=== PATIENT | female | born 1990 | race Two or more races ===

== ENCOUNTER 2021-07-03 15:23 | Inpatient (IN) ==
[2021-07-03] MEDS ORDERED: ACETAMINOPHEN 325 MG TAB PO PRN (16:48)
[2021-07-03] MEDS ORDERED: ONDANSETRON INJ 2 MG/ML 2 ML VIAL IV PRN ×2 (16:48→20:29)
[2021-07-03] MEDS ORDERED: OXYTOCIN 30 UNITS/500 ML BAG IV PRN (18:59)
[2021-07-03] MEDS: LACTATED RINGER'S 1,000 ML IV PRN ×2 (19:05→20:22)
--- NOTE | 2021-07-03 19:07 | History & Physical Report ---
Date of Service July 03, 2021 Assessment & Plan (1) Encounter for supervision of normal in multigravida: (2) Normal labor: Plan: Gloria is a 31-year-old currently at 38 weeks 5 days gestational age presents in labor. Patient progressed from 2 cm dilated to 4.5 cm dilated over 2-1/2 hours. Negative for rupture on exam 1. Fetus: Cat 1 2. Labor: Progressing. Will AROM when able 3. GBS negative 4. Vitals: Recent elevated BP. Patient asymptomatic. Will continue to monitor History of Present Illness Primary Care Provider: Xiang Lam 31-year-old currently at 38 weeks 5 days gestational age presents in labor. Patient reports contractions increasing intensity of frequency throughout the day. Patient reporting contractions with 10/10 pain at present. is been uncomplicated today. OB Labs: Blood Type O Positive 12/19/20 Antibody Screen NEGATIVE 12/19/20 Hemoglobin 11.5 g/dL (12.0-16.0) L 04/23/21 Hematocrit 35.8 % (37-47) L 04/23/21 Mean Corpuscular Volume 92.2 fL (80-100) 02/10/21 Platelet Count 181 K/uL (130-400) 02/10/21 Rubella IgG Antibody Immune (Immune) 12/19/20 Rapid Plasma Reagin Nonreactive (Nonreactive) 12/19/20 Hepatitis B Surface Antigen Neg (Neg) 12/19/20 HIV (1&2) Ab and P24 Ag, 4th Gener Neg (Neg) 12/19/20 Glucose 1 Hour 50 gm Load 95 mg/dl (70-130) 04/23/21 OB Optional Labs: Chlamydia trachomatis RNA NOT DETECTED (NOT DETECTED) 12/19/20 Neisseria gonorrhoeae RNA NOT DETECTED (NOT DETECTED) 12/19/20 Labs Reviewed: cfdna-negative--mln Allergies Allergy/AdvReac Type Severity Reaction Status Date / Time shrimp Allergy Severe Anaphylaxis Verified 07/03/21 16:50 Home Medications Medication Instructions Recorded Confirmed Type prenat.vits,pia,ljd-yhuz-exjpp 1 tab PO DAILY 12/08/20 07/03/21 History Patient History Medical History Asthma History of chicken pox Hyperhidrosis Surgical History S/P sympathectomy S/P wisdom tooth extraction Family History Father Heart disease Hypertension Mother Heart disease Hypothyroidism Irritable bowel syndrome with predominant constipation Endometriosis Denies family history of Ovarian cancer Breast cancer Colorectal cancer Social History Smoking Status: Never smoker Do You Dip or Chew Tobacco: No; Hx Alcohol Use: No Hx Substance Use: No Preferred Language: Nigerien Communication Ability: Effective Visual Impairment: No Limitations Hearing Ability: Normal Supervisor [employer] San[employer] Required: No Beliefs That Will Affect Care: None marital status: marital status details: Isma Ling(32) [phone] Current Living Situation: Family Current Living Situation Comment: lives with spouse, daughter, dog current occupational status: employed current occupation: Nurse [employer] Other Information That Helps Us Care for You: No Feels Safe at Home: Yes Safety Concerns: Feels Safe At This Time Assistive Devices: None Physical Exam Genitourinary: OB Exam Abdomen: + vertex Manual OB Exam: + cervical dilation (4.5), + cervical effacement 80% and + station -1 OB Exam Monitor Tracing: + external FHT monitor used, + external uterine monitor used, + category I and + normal FHT variability; no early decelerations present, no late decelerations present and no variable decelerations Results & Data ([facility]) Vital Signs (Past 12 Hours) Vital Signs Temp Pulse Resp BP 07/03/21 18:47 36.9 C 78 20 158/74 H 07/03/21 15:46 36.8 C 74 18 134/67 07/03/21 15:43 36.8 C 74 18 134/67 Coding Level of Care Code None Diagnoses Encounter for supervision of normal in multigravida Z34.80 Normal labor O80; Z37.9
[2021-07-03] MEDS ORDERED: fentaNYL citrate 100 MCG/2 ML VIAL ONE (19:11)
[2021-07-03] MEDS ORDERED: ePHEDrine sulfate 50 MG/ML AMP ONE (19:11)
[2021-07-03] MEDS ORDERED: BUPIVACAINE 0.25% 30 ML VIAL ONE (19:12)
[2021-07-03] MEDS ORDERED: SODIUM CHLORIDE 0.9% INJ 10 ML VIAL ONE (19:12)
[2021-07-03] MEDS ORDERED: fentaNYL 2MCG/ML ROPIVACAINE 1.25MG/ML 100 ML BAG EPI ONE (19:12)
[2021-07-03 19:22] LABS: Hematocrit (blood only) 34.9 % (37-47); Hemoglobin 11.4 g/dL (12.0-16.0); Mean Corpuscular Hemoglobin 29.5 pg (25-34); Mean Corpuscular Hgb Conc 32.7 g/dL (32-36); Mean Corpuscular Volume 90.2 fL (80-100); Mean Platelet Volume 11.1 fL (7.4-10.4); Nucleated RBC # (auto) 0.03 K/uL (0-0); Nucleated RBC % (auto) 0.3 %; Platelet Count 271 K/uL (130-400); RDW Standard Deviation 45.8 fL (36.4-46.3); Red Blood Count 3.87 M/uL (4.2-5.4); White Blood Count 10.53 K/uL (4.8-10.8)
--- NOTE | 2021-07-03 19:55 | Anesthesiology Consultation ---
Date of Service July 03, 2021 Assessment & Plan (1) Encounter for pre-operative examination: Chart Review Chart Review: Patient NOT seen in Pre Admission Testing and Acceptable Risk for Labor Epidural Consults Requested none History Height/Weight Height: 5 ft 7 in Weight: 103.419 kg Allergies Allergy/AdvReac Type Severity Reaction Status Date / Time shrimp Allergy Severe Anaphylaxis Verified 07/03/21 16:50 Medications Home Medications Medication Instructions Recorded Confirmed Last Taken prenat.vits,pia,nvh-qlrk-thcwk 1 tab PO DAILY 12/08/20 07/03/21 1 Day Ago ~07/02/21 Active Medications Generic Name Dose Route Start Last Admin Trade Name Freq PRN Reason Stop Dose Admin Lactated Ringer's 1,000 mls @ 125 mls/hr 07/03/21 18:59 07/03/21 19:05 Lr IV 07/05/21 18:58 999 mls/hr .Q8H PRN Administration L&D Protocol Protocol Past Medical History Medical History Asthma History of chicken pox Hyperhidrosis Past Family History Family History Father Heart disease Hypertension Mother Heart disease Hypothyroidism Irritable bowel syndrome with predominant constipation Endometriosis Denies family history of Ovarian cancer Breast cancer Colorectal cancer Past Surgical History Surgical History S/P sympathectomy S/P wisdom tooth extraction Social History Smoking Status: Never smoker Do You Dip or Chew Tobacco: No Hx Alcohol Use: No Hx Substance Use: No substance use type: does not use Physical Exam Vital Signs Last Vital Signs Temp 36.9 C 07/03/21 18:47 Pulse 71 07/03/21 19:51 Resp 20 07/03/21 18:47 BP 158/74 H 07/03/21 18:47 Pulse Ox 92 07/03/21 19:51 Testing Laboratory Results 07/03/21 19:08
[2021-07-03] MEDS ORDERED: NALBUPHINE HCL INJ 10 MG/ML AMP IV PRN (20:29)
[2021-07-03] MEDS ORDERED: ePHEDrine sulfate 50 MG/ML AMP IV PRN (20:29)
[2021-07-03] MEDS ORDERED: NALOXONE HCL 1 MG in SODIUM CHLORIDE 0.9% 1000ML 1,000 ML IV PRN (20:29)
[2021-07-03] MEDS ORDERED: diphenhydrAMINE 50 MG/ML VIAL IV PRN (20:29)
[2021-07-03] MEDS ORDERED: NALOXONE HCL 0.4 MG/1 ML VIAL/CARP IV PRN (20:29)
--- NOTE | 2021-07-04 00:35 | Labor Progress Brief Note ---
Date of Service July 04, 2021 Subjective Reason For Note: Routine Evaluation Assessment & Plan (1) Normal labor: (2) Encounter for supervision of normal in multigravida: Plan: Gloria is a 31-year-old currently at 38 weeks 5 days gestational age presents in labor. Patient progressed from 2 cm dilated to 4.5 cm dilated over 2-1/2 hours. Negative for rupture on exam 1. Fetus: Cat 1 2. Labor: Progressing. AROM clr 3. GBS negative 4. Vitals: Recent elevated BP. Patient asymptomatic. Will continue to monitor Admission and Anticipated Discharge Date Admission Date: July 03, 2021 Physical Exam Genitourinary: Manual OB Exam: + cervical dilation 6 cm, + cervical effacement 90%, + station 0 and + amniotic fluid (AROM) clear OB Exam Monitor Tracing: + external FHT monitor used, + external uterine monitor used and + category I; no category II, no category III, no normal FHT variability, no early decelerations present, no late decelerations present and no variable decelerations [facility] & Data ([facility]) Vital Signs (Past 12 Hours) Vital Signs Temp Pulse Resp BP Pulse Ox 07/04/21 00:30 71 98 07/04/21 00:25 77 98 07/04/21 00:20 71 98 07/04/21 00:18 69 122/65 07/04/21 00:15 69 98 07/04/21 00:10 66 98 07/04/21 00:05 79 98 07/04/21 00:04 69 125/67 07/04/21 00:00 74 97 07/03/21 23:55 67 98 07/03/21 23:50 75 98 07/03/21 23:48 83 119/67 07/03/21 23:45 73 99 07/03/21 23:40 67 97 07/03/21 23:35 67 98 07/03/21 23:34 69 115/61 07/03/21 23:30 65 97 07/03/21 23:25 82 97 07/03/21 23:20 64 114/59 L 96 07/03/21 23:15 65 96 07/03/21 23:10 62 97 07/03/21 23:05 65 97 07/03/21 23:04 71 110/58 L 07/03/21 23:00 63 97 07/03/21 22:55 66 98 07/03/21 22:50 67 117/63 99 07/03/21 22:49 36.6 C 18 07/03/21 22:45 68 100 07/03/21 22:40 67 100 07/03/21 22:35 76 99 07/03/21 22:33 68 121/55 L 07/03/21 22:30 64 20 98 07/03/21 22:25 67 97 07/03/21 22:21 65 129/60 07/03/21 22:20 66 99 07/03/21 22:15 66 99 07/03/21 22:10 73 100 07/03/21 22:05 65 124/80 100 07/03/21 22:00 36.7 C 69 20 100 07/03/21 21:55 67 100 07/03/21 21:50 77 135/74 100 07/03/21 21:45 71 100 07/03/21 21:40 79 100 07/03/21 21:39 73 86 L 07/03/21 21:35 71 100 07/03/21 21:33 72 129/78 07/03/21 21:30 81 20 100 07/03/21 21:25 72 100 07/03/21 21:20 86 133/80 100 07/03/21 21:15 75 100 07/03/21 21:10 87 100 07/03/21 21:05 92 H 100 07/03/21 21:04 76 126/69 07/03/21 21:00 78 20 100 07/03/21 20:55 75 100 07/03/21 20:50 79 100 07/03/21 20:48 86 127/68 07/03/21 20:45 81 100 07/03/21 20:42 80 87 L 07/03/21 20:40 88 20 97 07/03/21 20:35 83 100 07/03/21 20:33 74 127/67 07/03/21 20:31 85 128/69 07/03/21 20:30 84 18 88 L 07/03/21 20:29 82 124/67 07/03/21 20:27 72 121/66 07/03/21 20:25 80 115/65 98 07/03/21 20:23 77 18 122/61 07/03/21 20:21 74 126/64 07/03/21 20:20 81 98 07/03/21 20:19 37.0 C 75 20 123/66 07/03/21 20:15 84 98 07/03/21 20:10 74 99 07/03/21 20:05 84 98 07/03/21 20:00 91 H 100 07/03/21 19:55 67 77 L 07/03/21 19:51 71 92 07/03/21 19:50 70 98 07/03/21 18:47 36.9 C 78 20 158/74 H 07/03/21 15:46 36.8 C 74 18 134/67 07/03/21 15:43 36.8 C 74 18 134/67 Coding Level of Care Code None Diagnoses Normal labor O80; Z37.9 Encounter for supervision of normal in multigravida Z34.80
[2021-07-04] MEDS: fentaNYL 2MCG/ML ROPIVACAINE 1.25MG/ML 100 ML BAG EPI PRN ×2 (02:45→07:21)
[2021-07-04] MEDS ORDERED: BENZOCAINE 20% AER SPR 82.5 GM CAN EXT PRN (08:30)
[2021-07-04] MEDS ORDERED: bisacodyL 10 MG SUPP PR PRN (08:30)
[2021-07-04] MEDS ORDERED: HYDROCORTISONE ACETATE 25 MG SUPP PR PRN (08:30)
[2021-07-04] MEDS ORDERED: ACETAMINOPHEN 325 MG TAB PO PRN (08:30)
[2021-07-04] MEDS ORDERED: DIPHTHERIA/TETANUS/PERTUSSIS 0.5 ML SYR/VIAL IM ONE (08:30)
[2021-07-04] MEDS ORDERED: OXYTOCIN 30 UNITS/500 ML BAG IV PRN (08:30)
--- NOTE | 2021-07-04 09:19 | Anesthesia Procedure Note ---
Date of Service July 04, 2021 Anesthesia Post Epidural Note Vital Signs Vital Signs: Temp Pulse Resp BP Pulse Ox 36.4 C L 94 H 20 149/66 H 98 07/04/21 07:27 07/04/21 09:13 07/04/21 09:00 07/04/21 09:13 07/04/21 08:10 Pain Intensity Lower Abdomen: Pain Intensity: 1 Notes Mental Status: alert / awake / arousable and participated in evaluation Patient Amnestic to Procedure: No Nausea / Vomiting: adequately controlled Pain: adequately controlled Airway Patency, RR, SpO2: stable & adequate BP & HR: stable & adequate Hydration State: stable & adequate Neuraxial Anesthesia: was administered and sensory block is resolving Anesthetic Complications: no major complications apparent and Pt Satisfied with anesthetic care Epidural: Removed without complications and With tip intact
[2021-07-04] MEDS: IBUPROFEN 600 MG TAB PO PRN ×2 (15:12→21:26)
[2021-07-04] MEDS: DOCUSATE SODIUM 100 MG CAP PO SCH (21:06)
[2021-07-05 06:56] LABS: Hematocrit (blood only) 31.8 % (37-47); Hemoglobin 10.3 g/dL (12.0-16.0); Mean Corpuscular Hemoglobin 29.2 pg (25-34); Mean Corpuscular Hgb Conc 32.4 g/dL (32-36); Mean Corpuscular Volume 90.1 fL (80-100); Mean Platelet Volume 10.9 fL (7.4-10.4); Platelet Count 232 K/uL (130-400); RDW Coefficient of Variation 14.7 % (11.5-14.5); RDW Standard Deviation 47.5 fL (36.4-46.3); Red Blood Count 3.53 M/uL (4.2-5.4); White Blood Count 12.14 K/uL (4.8-10.8)
--- NOTE | 2021-07-05 07:12 | Obstetrical Progress Note ---
Date of Service <Darci Verathuyanoop - Last Filed: 07/05/21 07:22> July 05, 2021 Assessment & Plan <Darci Dubose DO - Last Filed: 07/05/21 07:22> (1) Encounter for care and examination after delivery: 31 yo post day 1 from vaginal delivery, doing well. -Continue routine post care. -vital signs reviewed and WNL. (Tmax 37.5) -Blood type O+, GBS negative, Rubella Immune -Encourage ambulation, monitor and control pain with Motrin, tylenol PRN, resume regular diet, monitor lochia. -encourage breast feeding. -hemoglobin 10.3 -Patient wishing to go home today. Discussed discharge with patient. -Dr. Cancino to prescribe an anti-anxiolytic and follow up in 2 weeks for mental health check. <Rafael Cancino MD, FACOG - Last Filed: 07/05/21 07:24> (1) Encounter for care and examination after delivery: Subjective <Darci Verathuyanoop - Last Filed: 07/05/21 07:22> Ambulation: ambulating normally Voiding: no voiding problems Passing Gas:: Yes Diet Tolerance:: regular diet Lochia:: Small Feeding Type:: breast feeding Current Pain Level(1-10): 0 Patient voiced she would like a medication to help with anxiety she anticipates having upon discharge. She stated with her first child she had anxiety with some depressive symptoms past the first 2 weeks. Review of Systems Denies fever, chills, sweats Denies shortness of breath, difficulty breathing, chest pain, palpitations, chest pressure. Denies breast pain. Denies dysuria. Denies headache or changes in vision Physical Exam <Darci Verathuyanoop - Last Filed: 07/05/21 07:22> General: Alert, oriented. No acute distress. Cardiac: Regular rate and rhythm, no murmurs/rubs/gallops. Respiratory: Clear to auscultation bilaterally a/p, no wheezes/rales/rhonchi. No increased work of breathing. Symmetrical chest rise. No respiratory distress. Abdomen: Soft, nontender, nondistended. Bowel sounds present. Uterus: Uterine fundus firm, palpable 2 cm below umbilicus. Lower Extremities: No lower extremity edema or swelling. No deep calf pain. Effie's negative bilaterally Results & Data ([facility]) <Darci Dubose DO - Last Filed: 07/05/21 07:22> Vital Signs (Past 12 Hours) Vital Signs Temp Pulse Resp BP Pulse Ox 07/05/21 04:10 36.7 C 68 16 131/82 99 07/04/21 23:09 36.7 C 60 16 119/76 99 07/04/21 19:52 36.6 C 77 16 122/79 99 <Rafael Cancino MD, FACOG - Last Filed: 07/05/21 07:24> Co-Signing Physician Notes Resident Physician Supervision Note: I was present with Dr. Dubose during the history and exam. I discussed the case with the resident and agree with the findings and plan as documented in the note. Any exceptions or clarifications are listed here: [None] Documented By: Rafael Cancino MD, FACOG Resident Activity Tracking <Darci Dubose DO - Last Filed: 07/05/21 07:22> Resident Involvement: Resident Care Provided Care Provided: OB Delivery
[2021-07-05] MEDS: IBUPROFEN 600 MG TAB PO PRN (07:46)
[2021-07-05] MEDS: DOCUSATE SODIUM 100 MG CAP PO SCH (07:46)
[2021-07-05] MEDS ORDERED: FERROUS SULFATE 325 MG TAB PO SCH (08:00)
[2021-07-05] MEDS ORDERED: PRENATAL VITAMIN 1 TAB PO SCH (08:00)
--- NOTE | 2021-07-19 13:15 | Delivery Summary ---
DATE OF SERVICE: 07/04/2021 PROCEDURE: Spontaneous vaginal delivery, second-degree perineal laceration repair. SURGEON: Roby Sanchez MD. PREOPERATIVE DIAGNOSES: 1. Single intrauterine at 38 weeks 5 days gestational age. 2. Spontaneous labor. POSTOPERATIVE DIAGNOSES: 1. Single intrauterine at 38 weeks 5 days gestational age. 2. Spontaneous labor. 3. Status post procedure. ESTIMATED BLOOD LOSS: 100 mL. DRAINS: None. FLUIDS: Continuous lactated Ringer. URINE OUTPUT: Not measured. COMPLICATIONS: None. FINDINGS: Viable with weight of 8 pounds 4.9 ounces and Apgars of 8 and 9 at one and five mi nutes respectively. INDICATIONS: Gloria is a 31-year-old , admitted at 38 weeks 5 days gestational age in active labor. The patient progressed in labor spontaneously and later underwent artificial rupture of memb ranes for clear fluid. The patient progressed to 10 cm dilated, 100% effaced, positive 2-3 station w ith a strong urge to push. The patient did receive an epidural for anesthesia. DESCRIPTION OF PROCEDURE: The patient progressed to 10 cm dilated, 100% effaced, positive 2-3 statio n, pushed over intact perineum with epidural anesthesia and delivered a viable with weight an d Apgars as noted above. Head of the delivered in ROSEANN position, restituted to right transver se. No nuchal cord was noted. Body and shoulders quickly followed. was noted to be vigorou s soon after delivery and a 1 minute delayed cord clamping was initiated. Cord was then double clamp ed and cut. Attention was then turned to delivery of the placenta, which delivered intact, 3-vessel cord. Cord blood was obtained prior to delivery of placenta. Attention was then turned to the vagin a, cervix and perineum; there was noted to be a second-degree perineal laceration. The second-degree laceration was repaired with 3-0 Vicryl in a traditional crown stitch. Needle, sponge, and instrume nt counts were correct at the completion of the case. Both the mother and were stable in the immediate post-delivery period. Job ID: [id number]
== END 2021-07-05 14:30 | disposition home or self-care (01) | DRG 807 ==
LOC: OPB 15:23 → 4S1 15:24 → 4E2 07-04 12:07